=== PATIENT | female | born 1990 | race Caucasian/White ===

== ENCOUNTER 2017-01-25 03:07 | Emergency (ER) | payer SELFPAY ==
[~2017-01-25] VITALS: Ht 177.8 cm; Wt 63.5 kg
[~2017-01-25 03:07] MED LIST: BUSP30TA PO; CLON-364 PO; DIPH50CA36 PO; FLUO20CA8 PO; HYDR50TA13 PO; LITH600C PO; NITR100C6 PO; OLAN5TAB9 PO; QUET25TA PO; QUET300T PO; ZOLP-413 PO
[2017-01-25 03:12] VITALS: BP 106/98
[2017-01-25] MEDS ORDERED: DIPHENHYDRAMINE 25 MG CAPSULE PO ONE (03:30)
[2017-01-25] MEDS ORDERED: FAMOTIDINE 20 MG TABLET PO ONE (03:30)
== END 2017-01-25 04:01 | disposition left against medical advice (07) ==
LOC: ED 03:55
DX: R06.02 Shortness of breath (principal)
CPT/HCPCS: 71010; 99283

== ENCOUNTER 2017-05-28 06:53 | Observation (INO) | payer MEDICAID ==
[2017-05-22 08:06] VITALS: BP 96/51
[~2017-05-28] VITALS: Ht 177.8 cm; Wt 58.8 kg
[~2017-05-28 06:53] MED LIST changes: +ACET-1600 PO; +AMOX500T PO; +IBUP400T PO
[2017-05-28] MEDS ORDERED: LIDOCAINE 1%, 2ML ONE (07:58)
[2017-05-28] MEDS ORDERED: FENTANYL PF 250 MCG/5ML ONE (08:01)
[2017-05-28] MEDS ORDERED: MIDAZOLAM 1 MG/ML, 2ML ONE (08:01)
[2017-05-28 08:06] LABS: HCG UR OBC PASS
[2017-05-28] MEDS ORDERED: SILVER NITRATE STICK TP ONE (08:17)
[2017-05-28] MEDS ORDERED: BUPIVACAINE/PF 0.25% ONE (08:18)
[2017-05-28] MEDS ORDERED: EPINEPHRINE 1 MG/ML, 1ML ONE (08:18)
[2017-05-28] MEDS ORDERED: FLUORESCEIN SODIUM 500 MG/5 ML ONE (08:18)
[2017-05-28] MEDS ORDERED: PHENAZOPYRIDINE 200 MG TABLET ONE (08:18)
[2017-05-28] MEDS ORDERED: LACTATED RINGERS 1,000 ML IV SCH (08:24)
[2017-05-28] MEDS ORDERED: AMPICILLIN 1 GM in SODIUM CHLORIDE 0.9% 50 ML IV ONE (08:30)
[2017-05-28] MEDS ORDERED: PHENAZOPYRIDINE 200 MG TABLET PO ONE (08:30)
[2017-05-28] MEDS ORDERED: GENTAMICIN 120 MG in SODIUM CHLORIDE 0.9% 50 ML IV ONE (08:30)
[2017-05-28] MEDS ORDERED: LIDOCAINE 1%, 2ML SQ PRN (08:30)
[2017-05-28] MEDS ORDERED: HYDROmorphone 1 MG/ML, 1ML IV PRN (09:30)
[2017-05-28] MEDS ORDERED: hydrALAzine 20 MG/ML, 1ML IV PRN (09:30)
[2017-05-28] MEDS ORDERED: MIDAZOLAM 1 MG/ML, 2ML IV PRN (09:30)
[2017-05-28] MEDS ORDERED: HALOPERIDOL 5 MG/ML IV ONE (09:30)
[2017-05-28] MEDS ORDERED: METOPROLOL 1 MG/ML, 5ML IV PRN (09:30)
[2017-05-28] MEDS ORDERED: MEPERIDINE/PF 25MG/0.5ML IVPush PRN (09:30)
[2017-05-28] MEDS ORDERED: GENTIAN VIOLET SOLN 2% 60 ML TP ONE (10:07)
[2017-05-28] MEDS ORDERED: HYDROmorphone 2 MG/ML, 1ML ONE (10:53)
[2017-05-28] MEDS ORDERED: FENTANYL PF 100 MCG/2ML ONE (11:52)
[2017-05-28] MEDS ORDERED: OXYcodone 5 MG/5 ML ORAL.SOL UDC ONE (11:52)
[2017-05-28] MEDS ORDERED: ACETAMINOPHEN 325 MG TABLET ONE (11:53)
[2017-05-28] MEDS ORDERED: ACETAMINOPHEN 650 MG/20.3 ML UDC ONE (11:53)
[2017-05-28] MEDS: ACETAMINOPHEN 325 MG TABLET PO PRN ×2 (11:55→12:30)
[2017-05-28] MEDS: OXYcodone 5 MG/5 ML ORAL.SOL UDC PO PRN ×2 (11:55→12:30)
[2017-05-28] MEDS: FENTANYL PF 100 MCG/2ML IV PRN ×4 (12:05→12:50)
[2017-05-28] MEDS ORDERED: ONDANSETRON 2MG/ML, 2ML IV PRN (14:00)
[2017-05-28] MEDS ORDERED: NICOTINE 14MG/24 HR PATCH.TD24 TD SCH (14:00)
[2017-05-28] MEDS ORDERED: HYDROmorphone 2MG TABLET PO PRN (14:00)
[2017-05-28] MEDS ORDERED: KETOROLAC 30 MG/1 ML IV SCH (14:00)
[2017-05-28] MEDS ORDERED: MEPERIDINE/PF 100 MG/ML IM PRN (14:00)
[2017-05-28] MEDS: KETOROLAC 30 MG/1 ML IV SCH ×2 (14:08→20:02)
[2017-05-28] MEDS: HYDROmorphone 2 MG/ML, 1ML IV PRN ×4 (15:54→21:16)
[2017-05-28] MEDS ORDERED: IBUPROFEN 600 MG TABLET PO SCH (16:00)
[2017-05-28] MEDS ORDERED: PROPOFOL 10 MG/ML, 20ML ONE (16:09)
[2017-05-28] MEDS ORDERED: ROCURONIUM 10 MG/ML ONE (16:09)
[2017-05-28] MEDS ORDERED: GLYCOPYRROLATE 0.2MG/1ML ONE ×2 (16:09)
[2017-05-28] MEDS ORDERED: NEOSTIGMINE 1 MG/ML, 10ML ONE (16:09)
[2017-05-28] MEDS ORDERED: ONDANSETRON 2MG/ML, 2ML ONE (16:09)
[2017-05-28] MEDS ORDERED: DEXAMETHASONE 4 MG/ML, 1ML ONE (16:09)
[2017-05-28] MEDS ORDERED: KETOROLAC 30 MG/1 ML ONE (16:09)
[2017-05-28] MEDS ORDERED: SODIUM CHLORIDE 0.9% 1,000ML IV ONE (18:00)
[2017-05-28] MEDS: SIMETHICONE 80 MG CHEW TAB PO SCH ×2 (18:43→20:02)
[2017-05-28] MEDS: ONDANSETRON 2MG/ML, 2ML IV PRN ×2 (19:01→23:04)
[2017-05-28 19:31] VITALS: BP 111/67
[2017-05-28] MEDS: POTASSIUM CHLORIDE 20 MEQ in D5%-LACTATED RINGERS 1,000 ML IV SCH (21:05)
[2017-05-28] MEDS ORDERED: DIPHENHYDRAMINE 50 MG/ML, 1ML IV PRN (23:30)
[2017-05-29 00:02] VITALS: BP 108/62
[2017-05-29 02:04] VITALS: BP 136/90
[2017-05-29] MEDS: HYDROmorphone 2 MG/ML, 1ML IV PRN ×2 (02:05→04:59)
[2017-05-29] MEDS: KETOROLAC 30 MG/1 ML IV SCH ×2 (02:35→08:00)
[2017-05-29 04:30] VITALS: BP 107/56
[2017-05-29] MEDS: ONDANSETRON 2MG/ML, 2ML IV PRN (04:59)
[2017-05-29] MEDS: POTASSIUM CHLORIDE 20 MEQ in D5%-LACTATED RINGERS 1,000 ML IV SCH (05:04)
[2017-05-29] MEDS: SIMETHICONE 80 MG CHEW TAB PO SCH (07:59)
[2017-05-29] MEDS: HYDROmorphone 2MG TABLET PO PRN ×3 (07:59→12:07)
[2017-05-29] MEDS: IBUPROFEN 600 MG TABLET PO SCH ×2 (07:59→11:10)
[2017-05-29] MEDS ORDERED: FERROUS SULFATE 325 MG TABLET PO SCH (09:30)
[2017-05-29] MEDS ORDERED: ASCORBIC ACID 500 MG TABLET PO SCH (09:30)
[2017-05-29 09:47] VITALS: BP 82/35
[2017-05-29] MEDS ORDERED: HYDR2TAB29 PO (11:53)
[2017-05-29] MEDS ORDERED: IBUP200T48 PO (11:55)
[2017-05-29] MEDS ORDERED: NICO1PAT4 TD (11:58)
[2017-05-29 12:45] VITALS: BP 88/44
== END 2017-05-29 12:51 | disposition home or self-care (01) ==
LOC: OUT 06:53 → 4NOR 13:24 → OUT 23:26
PROVIDERS: ADMIT Specialist; ATTEND Specialist
DX: N87.9 Dysplasia of cervix uteri, unspecified (principal); N83.202 Unspecified ovarian cyst, left side; N72 Inflammatory disease of cervix uteri; N85.00 Endometrial hyperplasia, unspecified
CPT/HCPCS: 36415; 58571; 81025; 85014; 85018; 88307; 96374; 96375; 96376; G0378; J0171; J0290; J1100; J1170; J1200; J1580; J1885; J2250; J2405; J2704; J2710; J3010; J3480; J3490; J7030; J7120; J7121

== ENCOUNTER 2017-05-29 22:28 | Emergency (ER) | payer MEDICAID ==
[~2017-05-29] VITALS: Ht 177.8 cm; Wt 55.0 kg
[~2017-05-29 22:28] MED LIST changes: +HYDR2TAB29 PO; +IBUP200T48 PO; +NICO1PAT4 TD
[2017-05-29 22:30] VITALS: BP 126/68
[2017-05-29] MEDS ORDERED: MECLIZINE CHEWABLE 25 MG TAB ONE (23:17)
[2017-05-29] MEDS ORDERED: MECLIZINE CHEWABLE 25 MG TAB PO ONE (23:30)
== END 2017-05-29 23:40 | disposition left against medical advice (07) ==
LOC: ED 23:33
DX: R42 Dizziness and giddiness (principal); F41.1 Generalized anxiety disorder; Z90.710 Acquired absence of both cervix and uterus
CPT/HCPCS: 99283

== ENCOUNTER 2017-05-30 11:54 | Inpatient (IN) | payer MEDICAID ==
[~2017-05-30] VITALS: Ht 177.8 cm; Wt 68.4 kg
[2017-05-30 12:40] VITALS: BP 94/60
[2017-05-30] MEDS ORDERED: PLEASE ENTER HEIGHT AND WEIGHT MC SCH (13:00)
[2017-05-30 13:27] LABS: ASPARTATE AMINO TRANSFERASE 23 U/L (15-37); BLOOD UREA NITROGEN 5 mg/dL (7-18)
[2017-05-30 13:46] VITALS: BP 94/56
[2017-05-30] MEDS ORDERED: HYDROmorphone 4MG TABLET PO PRN (14:00)
[2017-05-30] MEDS: ONDANSETRON 2MG/ML, 2ML IVPush PRN ×3 (16:26→22:44)
[2017-05-30] MEDS: IBUPROFEN 600 MG TABLET PO SCH ×2 (16:27→17:54)
[2017-05-30] MEDS: HYDROmorphone 1 MG/ML, 1ML IV PRN ×3 (16:27→22:44)
[2017-05-30] MEDS: ASCORBIC ACID 500 MG TABLET PO SCH (17:46)
[2017-05-30] MEDS: FERROUS SULFATE 325 MG TABLET PO SCH (17:46)
[2017-05-30 20:50] VITALS: BP 92/51
[2017-05-31] MEDS: IBUPROFEN 600 MG TABLET PO SCH ×3 (02:00→14:53)
[2017-05-31 02:58] VITALS: BP 87/55
[2017-05-31 07:45] VITALS: BP 104/66
[2017-05-31] MEDS: ONDANSETRON 2MG/ML, 2ML IVPush PRN ×2 (07:57→18:57)
[2017-05-31] MEDS: HYDROmorphone 1 MG/ML, 1ML IV PRN (08:01)
[2017-05-31] MEDS ORDERED: POLYETHYLENE GLYCOL 17 GM PACKET PO ONE (10:00)
[2017-05-31] MEDS ORDERED: DOCUSATE 100 MG CAPSULE PO SCH (10:00)
[2017-05-31] MEDS: FERROUS SULFATE 325 MG TABLET PO SCH ×2 (10:07→18:07)
[2017-05-31] MEDS: ASCORBIC ACID 500 MG TABLET PO SCH ×2 (10:07→18:07)
[2017-05-31 10:34] LABS: ASPARTATE AMINO TRANSFERASE 20 U/L (15-37); BLOOD UREA NITROGEN 7 mg/dL (7-18)
[2017-05-31 13:42] VITALS: BP 97/60
[2017-05-31] MEDS ORDERED: LACTATED RINGERS 1,000 ML IVBOLUS ONE (15:00)
[2017-05-31] MEDS ORDERED: LEVOFLOXACIN/PMX 750MG/150ML 150 ML IV ONE (15:00)
[2017-05-31] MEDS ORDERED: AMOX1TAB64 PO (19:32)
[2017-05-31] MEDS ORDERED: ONDA4TAB13 SL (20:17)
== END 2017-05-31 20:30 | disposition home or self-care (01) | DRG 948 ==
LOC: 4NOR 12:12
PROVIDERS: ADMIT Specialist; ATTEND Specialist
DX: G89.18 Other acute postprocedural pain (principal); D62 Acute posthemorrhagic anemia; E86.0 Dehydration; R31.9 Hematuria, unspecified; G89.29 Other chronic pain; G43.909 Migraine, unspecified, not intractable, without status migrainosus; Z88.1 Allergy status to other antibiotic agents; Z88.5 Allergy status to narcotic agent; Z90.710 Acquired absence of both cervix and uterus
CPT/HCPCS: 36415; 74176; 80053; 81001; 85025; 86850; 86900; 86923; 87040; 87086; J1170; J1956; J2405; J7120

== ENCOUNTER → 2020-07-11 | Outpatient (CLI) | payer MEDICAID ==
[~2020-07-11] MED LIST changes: +AMOX1TAB64 PO; +FLUO20CA23 PO; -FLUO20CA8 PO; -HYDR50TA13 PO; +HYDR50TA99 PO; +IBUP-1221 PO; -IBUP200T48 PO; +IBUP200T49 PO; -IBUP400T PO; +NICO-486 TD; -NICO1PAT4 TD; +ONDA4TAB13 SL; -QUET25TA PO; +QUET25TA7 PO
== END | disposition home or self-care (01) ==
LOC: CFH 12:12
PROVIDERS: ATTEND Family Medicine
DX: R10.30 Lower abdominal pain, unspecified (principal); R31.9 Hematuria, unspecified; Z90.710 Acquired absence of both cervix and uterus
CPT/HCPCS: 74176